=== PATIENT | male | born 1995 | race Caucasian/White ===

== ENCOUNTER 2018-09-20 23:41 | Emergency (ER) | payer MEDICAID ==
[~2018-09-20] VITALS: Ht 175.3 cm; Wt 113.4 kg
[~2018-09-20 23:41] MED LIST: FIORICET 50-321 EACH PO
[2018-09-21] MEDS ORDERED: HYDROCORTISONE30 G9 RECTAL (00:26)
[2018-09-21] MEDS ORDERED: COLACE100 MG PO (00:26)
[2018-09-21 00:46] VITALS: BP 122/56
[2018-09-21] MEDS ORDERED: ULTRAM 50MG TAB50 MG PO (00:57)
== END 2018-09-21 00:46 | disposition home or self-care (01) ==
LOC: M.ERS 23:41
DX: K64.9 Unspecified hemorrhoids (principal); Z88.0 Allergy status to penicillin; Z90.49 Acquired absence of other specified parts of digestive tract

== ENCOUNTER 2021-06-20 21:37 | Emergency (ER) | payer OTHER ==
[~2021-06-20] VITALS: Ht 172.7 cm; Wt 108.9 kg
[~2021-06-20 21:37] MED LIST changes: +COLACE100 MG PO; +HYDROCORTISONE30 G9 RECTAL; +ULTRAM 50MG TAB50 MG PO
[2021-06-20 22:30] LABS: ABSOLUTE LYMPHOCYTES 0.8 thou/uL (0.8-5.3); ABSOLUTE MONOCYTES 0.9 thou/uL (0.0-1.2); ABSOLUTE NEUTROPHILS 4.4 thou/uL (1.6-8.1); BASOPHILS 0.6 %; EOSINOPHILS 0.7 %; HEMATOCRIT 44.1 % (42.0-52.0); HEMOGLOBIN 15.3 gm/dL (14.0-18.0); MCHC 34.7 g/dL (28.0-37.0); MCV 89.4 fL (80.0-100.0); MONOCYTES 14.1 %; MPV 7.2 fl. (7.2-11.1); NUCLEATED RBCS 0 /100WBC; PLATELET COUNT* 201 thou/uL (150-400); POLYS 71.6 %; RBC 4.93 mil/uL (4.50-6.00); RDW-CV 14.6 % (10.5-14.5); WBC 6.1 thou/uL (4.0-11.0)
[2021-06-20 22:57] LABS: CALCIUM 8.7 mg/dL (8.5-10.1); CREATININE 1.2 mg/dL (0.6-1.3); POTASSIUM 3.6 mmol/L (3.5-5.1)
[2021-06-20 22:59] LABS: URINE BILIRUBIN NEGATIVE (Negative); URINE BLOOD TRACE (Negative); URINE CLARITY CLEAR; URINE COLOR YELLOW; URINE GLUCOSE-RANDOM NEGATIVE (Negative); URINE KETONES NEGATIVE (Negative); URINE LEUKOCYTES-REFLEX NEGATIVE (Negative); URINE NITRITE-REFLEX NEGATIVE (Negative); URINE PROTEIN NEGATIVE (Negative)
[2021-06-20 23:02] LABS: ALBUMIN 3.7 g/dL (3.4-5.0); TOTAL BILIRUBIN 0.5 mg/dL (<0.1-1.0); TOTAL PROTEIN 7.2 g/dL (6.4-8.2)
[2021-06-20 23:07] LABS: AMP/METHAMP Negative (Negative); BARBITURATES Negative (Negative); BENZODIAZEPINES Negative (Negative); COCAINE Negative (Negative); METHADONE Negative (Negative); OPIATES Negative (Negative); PCP Negative (Negative); THC POSITIVE (Negative)
[2021-06-20] MEDS ORDERED: PROMS25 WY RECTAL (23:27)
[2021-06-20] MEDS ORDERED: PHENERGAN 25 MG25 M1 PO (23:27)
[2021-06-21 00:09] VITALS: BP 150/103
== END 2021-06-21 00:09 | disposition home or self-care (01) ==
LOC: M.ERS 21:37
PROVIDERS: Personal Emergency Response Attendant
DX: U07.1 COVID-19 (principal); Z90.49 Acquired absence of other specified parts of digestive tract; Z88.0 Allergy status to penicillin